=== PATIENT | male | born 1955 | race Caucasian/White ===

== ENCOUNTER 2019-09-04 16:00 | Emergency (ER) | payer BC, MEDICARE ==
--- NOTE | 2019-09-04 16:39 | ED ---
Dizziness - HPI Summary HPI Summary: This pt is a 64 y/o male, accompanied by friend Za, presenting to [facility] via EMS for feeling off balance today since 1330 today. Pt reports he was at home this afternoon eating lunch and watching TV. He states he got up from the couch and took a couple of steps and felt off balance leaning to the right side. He describes he was shuffling his feet a little. Pt states "it's like when you stand up too fast." Denies room spinning sensation. Denies fall or syncope. Additionally pt reports feeling right ear fullness for the past 1 week. Denies ear ache. Pt reports he has felt bilateral ear fullness for the past 1 week. Denies any PMHx. Denies FHx of DM, HTN, or strokes. He admits to tobacco use. Dr. Baig is his PCP. - History Of Current Complaint Chief Complaint: EDDizziness Stated Complaint: LIGHTHEADED PER EMS Time Seen by Provider: 09/04/19 16:23 Hx Obtained From: Patient Onset/Duration: Still Present Timing: Days Severity Currently: Moderate Character: Dizzy Aggravating Factor(s): Nothing Alleviating Factor(s): Nothing Associated Signs And Symptoms: Negative: Fever, Chills - Allergies/Home Medications Allergies/Adverse Reactions: Allergies Allergy/AdvReac Type Severity Reaction Status Date / Time No Known Allergies Allergy Verified 09/04/19 16:17 Home Medications: Home Medications LORazepam [Lorazepam] 0.5 mg PO DAILY PRN 09/04/19 [History Confirmed 09/04/19] PMH/Surg Hx/FS Hx/Imm Hx Endocrine/Hematology History: Denies: Hx Diabetes Cardiovascular History: Denies: Hx Hypertension Infectious Disease History: No Infectious Disease History: Denies: Traveled Outside the [place] in Last 30 Days - Family History Known Family History: Negative: Hypertension, Diabetes Family History: No FHx of strokes. - Social History Alcohol Use: Occasionally Substance Use Type: Reports: None Smoking Status (MU): Current Every Day Smoker Review of Systems Negative: Fever ENT: Other - POSITIVE: right ear fullness Neurological: Other - POSITIVE: dizziness All Other Systems Reviewed And Are Negative: Yes Physical Exam - Summary Physical Exam Summary: Constitutional: Well-developed, Well-nourished, Alert. (-) Distressed Skin: Warm, Dry HENT: Normocephalic; Atraumatic. Bilateral tympanic membranes alva and pearly. Eyes: Conjunctiva normal Neck: Musculoskeletal ROM normal neck. (-) JVD, (-) Nuchal rigidity Cardio: Rhythm regular, rate normal, Heart sounds normal; Intact distal pulses; Radial pulses are 2+ and symmetric. (-) Murmur Pulmonary/Chest wall: Effort normal. (-) Respiratory distress, (-) Wheezes, (-) Rales Abd: Soft. (-) Tenderness, (-) Distension, (-) Guarding, (-) Rebound Musculoskeletal: (-) Edema Lymph: (-) Cervical adenopathy Neuro: Alert, PERRL, Oriented x3, Strength normal, Cranial nerves II-XII are grossly intact. SILT, Strength 5/5 BUE and BLE, (-) Dysmetria, (-) Nystagmus, ambulates w steady gait. GCS is 15. Psych: Mood and affect Normal Triage Information Reviewed: Yes Vital Signs On Initial Exam: Initial Vitals Temp Pulse Resp BP Pulse Ox 98.2 F 73 16 164/86 93 09/04/19 16:13 09/04/19 16:13 09/04/19 16:13 09/04/19 16:13 09/04/19 16:13 Vital Signs Reviewed: Yes Procedures - Sedation Patient Received Moderate/Deep Sedation with Procedure: No Diagnostics - Vital Signs Vital Signs Temp Pulse Resp BP Pulse Ox 09/04/19 16:13 98.2 F 73 16 164/86 93 - Laboratory Result Diagrams: 09/04/19 17:25 09/04/19 17:25 Lab Statement: Any lab studies that have been ordered have been reviewed, and results considered in the medical decision making process. - EKG 17:58 Cardiac Rate: NL - at 64 bpm EKG Rhythm: Sinus Rhythm Summary of EKG Findings: EKG at 17:58 shows sinus rhythm at a rate of 64 bpm. T wave inversions in lead V1. National Institutes Of Health - NIH Scale Level of Consciousness: Alert/Keenly Responsive Ask Patient the Month and His/Her Age: Both Correct Ask Pt to Open/Close Eyes and Erp Business Analyst/Release Non-Paretic Hand: Both Correctly Best Gaze (Only Horizontal Eye Movement): Normal Visual Field Testing: No Visual Loss Facial Paresis-Pt to Smile & Close Eyes or Grimace Symmetry: Normal/Symmetrical Motor Function - Right Arm: No Drift-Holds 10 Seconds Motor Function - Left Arm: No Drift-Holds 10 Seconds Motor Function - Right Leg: No Drift-Holds 10 Seconds Motor Function - Left Leg: No Drift-Holds 10 Seconds Limb Ataxia-Must be out of Proportion to Weakness Present: Absent Sensory (Use Pinprick to Test Arms/Legs/Trunk/Face): Normal Best Language (Describe Picture, Name Items): No Aphasia Dysarthria (Read Several Words): Normal Extinction and Inattention: No Abnormality Total Score: 0 Re-Evaluation - Re-Evaluation First Eval Re-Evaluation Time: 19:00 Change: Improved - CBC and CMP unremarkable. EKG sinus, normal orthostatics. pending CT/CTA Dizzy Course/Dx - Course Course Of Treatment: 64 y/o male w hx of tobacco use p/w lightheadedness and episode of gait abnormality (resolved). Dizziness ddx: Differential diagnosis includes: Cardiac causes - will check EKG, get orthostatics. Electrolyte disturbances - will check CMP. Anemia - will check CBC. Posterior stroke/tia - will get CT/CTA head. D/w information security manager neurology. Denies vertigo symptoms. NIHSS 0. No neuro deficits on exam. Assessment/Plan: Pt will be signed out to Dr. Nguyễn pending brain CT, head/ neck CTA, and neuro consultation. - Diagnoses Provider Diagnoses: Lightheadedness - Provider Notifications Discussed Care Of Patient With: Evert Olivas Time Discussed With Above Provider: 16:41 Instructed by Provider To: Other - Discussed with Dr. Olivas, neurologist, who agrees with CT/CTA head and orthostatic vitals. Discharge ED - Sign-Out/Discharge Documenting (check all that apply): Sign-Out Patient Signing out patient TO: Lit Nguyễn - pending CT, CTA, and neuro consultation - Discharge Plan Condition: Stable Referrals: No Primary Care Phys,NOPCP [Primary Care Provider] - Additional Instructions: You were seen in the emergency department for lightheadedness. Her head CT and CTA showed If any studies were not completed at the time of discharge you will be called with the relevant results. Please follow up with your primary care doctor in next 2-3 days and return to emergency department for worsening pain, lightheadedness, or concerning symptoms. It was a pleasure taking care of you today. - Billing Disposition and Condition Condition: STABLE - Attestation Statements Document Initiated by Danialibsofi: Yes Documenting Scribe: Angely Bee Provider For Whom Khadijah is Documenting (Include Credential): Natali Zuniga MD Scribe Attestation: I, Angely Bee, scribed for Natali Zuniga MD on 09/04/19 at 1916. Scribe Documentation Reviewed: Yes Provider Attestation: The documentation as recorded by the Angely ramirez accurately reflects the service I personally performed and the decisions made by me, Natali Zuniga MD Status of Scribe Document: Viewed
[2019-09-04 17:57] LABS: ABS Basophils 0.1 10^3/ul (0-0.2); ABS Eosinophils 0.1 10^3/ul (0-0.6); ABS Lymphocytes 1.8 10^3/ul (1.0-4.8); ABS Monocytes 0.7 10^3/ul (0-0.8); ABS Neutrophils 4.3 10^3/ul (1.5-7.7); Eosinophil % 1.9 %; Hematocrit 45 % (42-52); Hemoglobin 15.7 g/dL (14.0-18.0); Lymphocyte % 26.1 %; Mean Corpuscular HGB Conc 35 g/dL (31-36); Mean Corpuscular Hemoglobin 33 pg (27-31); Mean Corpuscular Volume 95 fL (80-94); Mean Platelet Volume 8.1 fL (7.4-10.4); Platelet Count 138 10^3/uL (150-450); Red Blood Count 4.77 10^6 /uL (4.18-5.48); Red Cell Distribution Width 13 % (10-15)
[2019-09-04 18:02] LABS: Albumin 4.1 g/dL (3.2-5.2); Albumin/Globulin Ratio 1.4 (1-3); BUN/Creatinine Ratio 16.8 (8-20); Calcium 9.2 mg/dL (8.6-10.3); EGFR African American 74.2 (>60); EGFR Non-African American 61.4 (>60); Potassium 3.9 mmol/L (3.5-5.0); Total Bilirubin 0.5 mg/dL (0.2-1.0); Total Protein 7.1 g/dL (6.4-8.9)
[2019-09-04] MEDS ORDERED: Iohexol 350* (CONTRAST) 500 ML MDV IV ONE (18:29)
--- NOTE | 2019-09-04 19:03 | ED ---
Progress - Progress Note Progress Note: This pt is a sign out to Dr. Nguyễn from Dr. Zuniga at shift change [address], Head/Neck CTA, consult, and disposition. - Results/Orders Results/Orders: His brain CT shows: No acute intracranial abnormality. ED physician has reviewed this report. Head CTA shows no acute head/neck abnormalities. ED physician has reviewed this report. Re-Evaluation - Re-Evaluation First Eval Re-Evaluation Time: 19:00 Change: Improved - CBC and CMP unremarkable. EKG sinus, normal orthostatics. pending CT/CTA Course/Dx - Course Course Of Treatment: This pt is a sign out to Dr. Nguyễn from Dr. Zuniga at shift change 189909/04/[address], Head/Neck CTA, consult, and disposition. His Brain CT showed No acute intracranial abnormality. Head CTA shows no acute head/neck abnormalities. He will be discharged home with a Dx of lightheadedness. - Diagnoses Provider Diagnoses: Lightheadedness - Provider Notifications Time Discussed With Above Provider: 16:41 Instructed by Provider To: Other - Discussed with Dr. Olivas, neurologist, who agrees with CT head and orthostatic vitals. Discharge ED - Sign-Out/Discharge Documenting (check all that apply): Patient Departure - discharge - Discharge Plan Condition: Good Disposition: HOME Patient Education Materials: Dizziness (ED) Referrals: No Primary Care Phys,NOPCP [Primary Care Provider] - Additional Instructions: You were seen in the emergency department for lightheadedness. Your head CT and CTA showed no abnormalities of note. The symptoms you had today do not appear to be a stroke like event, so it is safe for you to go home tonight and followup with your doctor during the week. If any studies were not completed at the time of discharge you will be called with the relevant results. Please follow up with your primary care doctor in next 2-3 days and return to emergency department for worsening pain, lightheadedness, or concerning symptoms. It was a pleasure taking care of you today. - Billing Disposition and Condition Condition: GOOD Disposition: Home - Attestation Statements Document Initiated by Scribe: Yes Documenting Scribe: Shamar Ochoa Provider For Whom Scribe is Documenting (Include Credential): Lit Nguyễn MD Scribe Attestation: Shamar Zamorano scribed for Lit Nguyễn MD on 09/05/19 at 1823. Scribe Documentation Reviewed: Yes Provider Attestation: The documentation as recorded by the [email or web address] accurately reflects the service I personally performed and the decisions made by me, Lit Nguyễn MD Status of Scribe Document: Viewed Procedures - Sedation Patient Received Moderate/Deep Sedation with Procedure: No
[2019-09-04 20:45] VITALS: BP 142/78
== END 2019-09-04 20:44 | disposition home or self-care (01) ==
LOC: ED 16:00
DX: R42 Dizziness and giddiness (principal); F17.200 Nicotine dependence, unspecified, uncomplicated
CPT/HCPCS: 36415; 70450; 70496; 70498; 80053; 85025; 93005; 99284; Q9967